=== PATIENT | male | born 1965 | race Caucasian/White ===

== ENCOUNTER 2020-03-14 19:16 | Emergency (ER) | payer BC, OTHER ==
[2020-03-14] MEDS ORDERED: Sodium Chloride 0.9% 10 ML Syringe FLUSH PRN (19:24)
--- NOTE | 2020-03-14 19:24 | EDM.PDOC ---
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 above. Symptomatic relief with additional Flexeril with caution. (3) Wrist pain SNOMED Code(s): 11455644 Code(s): M25.539 - PAIN IN UNSPECIFIED WRIST Status: Acute Priority: High Onset Date: 03/14/20 Annotation/Comment:: Symptomatic relief as per discharge instructions for minor wrist sprain. He does have Rufino wraps at home. He does not wish to have a cock up wrist splint. Qualifiers: Laterality: right Qualified Code(s): M25.531 - Pain in right wrist (4) Parkinsons disease SNOMED Code(s): 63678524 Code(s): G20 - PARKINSON'S DISEASE Status: Chronic Priority: High Annotation/Comment:: Occasional borderline mild slow thought processes by history from his . CT scan of the head results as above. Head precautions given. Note recent change of patient's medications including additional Mirapex. Additional moderate alcohol intake, including binge drinking with patient e ncouraged to decrease his alcohol intake. Continue to observe closely by his regular provider. (5) Osteoarthritis SNOMED Code(s): 447345551 Code(s): M19.90 - UNSPECIFIED OSTEOARTHRITIS, UNSPECIFIED SITE Status: Chronic Priority: Medium Annotation/Comment:: Otherwise stable by history with no other injuries or complaints. Qualifiers: Osteoarthritis location: multiple joints Osteoarthritis type: primary Qualified Code(s): M89.49 - Other hypertrophic osteoarthropathy, multiple sites (6) Hyperglycemia SNOMED Code(s): 16179691 Code(s): R73.9 - HYPERGLYCEMIA, UNSPECIFIED Status: Acute Priority: Medium Onset Date: 03/14/20 Annotation/Comment:: No oral intake since noon with elevated seven-hour fasting blood sugar. Normal glycosylated hemoglobin. (7) Abrasion SNOMED Code(s): 592948557 Code(s): T14.8XXA - OTHER INJURY OF UNSPECIFIED BODY REGION, INITIAL ENCOUNTER Status: Chronic Priority: High Onset Date: 03/14/20 Annotation/Comment:: Minor abrasion of the right wrist as above. See room nurse did confirm last DTaP on 02/28/15 thru [facility]. - Problem List Review Problem List Initiated/Reviewed/Updated: Yes - My Orders Last 24 Hours: My Active Orders 03/14/20 Breakfast Nothing per Oral Now Diet [DIET] 03/14/20 19:24 Cardiac Monitoring [RC] . DIRECTED EKG Documentation Completion [RC] ASDIRECTED Oxygen Therapy, ED [RC] PRN Peripheral IV Care [RC] . DIRECTED Pulse Oximetry [RC] CONTINUOUS Up With Assistance [RC] PFP Vital Signs [RC] PFP Cervical Spine 1V [CR] Stat Chest 1V Frontal [CR] Stat Lumbar Spine 1V [CR] Stat Pelvis 1V or 2V [CR] Stat Sodium Chloride 0.9% [Saline Flush] 10 ml FLUSH ASDIRECTED PRN Obtain Past Medical Record [OM.PC] Urgent Peripheral IV Insertion Adult [OM.PC] Stat Resuscitation Status Stat EKG 12 Lead [EK] Stat 03/14/20 19:26 Lumbar Spine Min 4V [CR] Stat 03/14/20 19:34 Head wo Cont [CT] Stat 03/14/20 22:45 CULTURE URINE [RM] Routine - Assessment/Plan Last 24 Hours: My Active Orders 03/14/20 Breakfast Nothing per Oral Now Diet [DIET] 03/14/20 19:24 Cardiac Monitoring [RC] . DIRECTED EKG Documentation Completion [RC] ASDIRECTED Oxygen Therapy, ED [RC] PRN Peripheral IV Care [RC] . DIRECTED Pulse Oximetry [RC] CONTINUOUS Up With Assistance [RC] PFP Vital Signs [RC] PFP Cervical Spine 1V [CR] Stat Chest 1V Frontal [CR] Stat Lumbar Spine 1V [CR] Stat Pelvis 1V or 2V [CR] Stat Sodium Chloride 0.9% [Saline Flush] 10 ml FLUSH ASDIRECTED PRN Obtain Past Medical Record [OM.PC] Urgent Peripheral IV Insertion Adult [OM.PC] Stat Resuscitation Status Stat EKG 12 Lead [EK] Stat 03/14/20 19:26 Lumbar Spine Min 4V [CR] Stat 03/14/20 19:34 Head wo Cont [CT] Stat 03/14/20 22:45 CULTURE URINE [RM] Routine Assessment:: As above Plan: As above. Extensive precautions were given to the patient and his , who are in agreement with the treatment plan. See Patient Instructions for further treatment and plan.
[2020-03-14 20:01] LABS: CHLORIDE,CL 105 mmol/L (98-107); SODIUM,NA 139 mmol/L (136-145)
[2020-03-14 20:43] LABS: HEMOGLOBIN A1C 5.2 % (4.3-5.7)
[2020-03-14 23:40] LABS: BARBITURATE SCREEN,URINE NEGATIVE (NEGATIVE); BENZODIAZEPINES SCREEN,URINE NEGATIVE (NEGATIVE); EDDP,URINE SCREEN NEGATIVE (NEGATIVE); TCA SCREEN,URINE NEGATIVE (NEGATIVE); THC SCREEN,URINE 50 NG/ML NEGATIVE (NEGATIVE)
== END 2020-03-15 00:15 | disposition home or self-care (01) ==
LOC: LL.ED 19:16
DX: S60.811A Abrasion of right wrist, initial encounter (principal); M89.49 Other hypertrophic osteoarthropathy, multiple sites; M54.5 Low back pain; G20 Parkinson's disease; R73.9 Hyperglycemia, unspecified; Z86.73 Personal history of transient ischemic attack (TIA), and cerebral infarction without residual deficits; V43.53XA Car driver injured in collision with pick-up truck in traffic accident, initial encounter; Y92.411 Interstate highway as the place of occurrence of the external cause
CPT/HCPCS: 36415; 70450; 71045; 72040; 72110; 72170; 73110-RT; 80053; 80305-QW; 80307; 81001; 82150; 82550; 82553; 83036; 83605; 83690; 83735; 84484; 84550; 85025; 85610; 85730; 87086; 93005; 96372; 99285-25; J3360

== ENCOUNTER 2020-09-13 11:12 | Emergency (ER) | payer BC ==
[2020-09-13] MEDS ORDERED: Pantoprazole 40 MG Vial IVPUSH ONE (11:19)
[2020-09-13] MEDS ORDERED: Lactated Ringers 1,000 ML IV ONE (11:19)
[2020-09-13] MEDS ORDERED: Famotidine 20 MG/2 ML SDV IVPUSH ONE (11:19)
--- NOTE | 2020-09-13 11:19 | EDM.PDOC ---
ED HPI GENERAL MEDICAL PROBLEM - General Chief Complaint: Gastrointestinal Problem Stated Complaint: right sided abdominal pain and distention Time Seen by Provider: 09/13/20 11:12 Source of Information: Reports: Patient, Family (), Old Records ([facility] EMR. No paper hospital chart available.) History Limitations: Reports: No Limitations - History of Present Illness INITIAL COMMENTS - FREE TEXT/NARRATIVE: The patient was brought to the emergency room via private automobile by his for evaluation of exacerbation of his chronic constipation. Note that the patient has not had a good bowel movement since 09/07 with the patient seen by his regular provider, Sayra Ramos PA-C, at [facility] in [place], on 09/11 with stool softener, etc. prescribed at that time with no improvement of his symptoms. Patient took 4 doses of MiraLAX on his own yesterday with some small liquid bowel movements with but no significant stools. No recent history of heartburn, nausea, diarrhea, melena, gross hematochezia, or any food intolerance, including fatty foods, etc., although the patient does complain of 3/10 mid abdominal bloating. The patient denies any chest pain/pressure, heart flutter, dizziness, orthostasis, orthopnea, diaphoresis, paresthesias, recent decreased exercise tolerance, or any other anginal-type symptoms. He denies any gross hematuria, colic, or other UTI symptoms. The patient also denies any recent fever, cough, wheezing, dyspnea, etc.. Onset: Gradual Onset Date: 09/07/20 Duration: Getting Worse, Intermittent Location: Reports: Abdomen. Denies: Head, Face, Neck, Chest, Back, Pelvis, Upper Extremity, Left, Upper Extremity, Right, Lower Extremity, Left, Lower Extremity, Right, Radiates to Quality: Reports: Other (As above) Improves with: Reports: None Worsens with: Reports: None Context: Reports: Other (As above). 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: Reports: Other Medication(s) (As above) right abdominal pain Pain Score (Numeric/FACES): 3 - Related Data Allergies Allergy/AdvReac Type Severity Reaction Status Date / Time No Known Allergies Allergy Verified 09/13/20 11:14 Home Meds: Home Meds Carbidopa/Levodopa [Sinemet 25-100 mg Tablet] 2 tab PO QID 09/13/20 [History] Docusate Sodium [Colace] 100 mg PO BID #60 cap 09/13/20 [Rx] Pramipexole [Mirapex] 2 tab PO TID 09/13/20 [History] Sodium Chloride 0.9% [Saline Flush] 10 ml FLUSH ASDIRECTED PRN syringe 09/13/20 [Rx] polyethylene glycoL 3350 [MiraLAX] 17 gm PO DAILY #30 09/13/20 [Rx] Past Medical History HEENT History: Reports: Cataract, Hard of Hearing, Impaired Vision. Denies: Allergic Rhinitis, Glaucoma, Macular Degeneration, Otitis Media, Retinal Detachment Other HEENT History: Patient does wear glasses. Mild bilateral hearing loss/presbycusis with no hearing aide therapy. Beginning cataracts. Cardiovascular History: Reports: None. Denies: Afib, Aneurysm, Arrhythmia, Blood Clots/VTE/DVT, CAD, Cardiomyopathy, Heart Failure, Heart Murmur, High Cholesterol, Hypertension, NV, PVD, Syncope Respiratory History: Reports: None. Denies: Asthma, Bronchitis, Recurrent, COPD, Intubation, Previous, PE, Pneumothorax, Sleep Apnea, TB Gastrointestinal History: Reports: Chronic Constipation, GERD. Denies: Celiac Disease, Cholelithiasis, Chronic Diarrhea, Fecal Incontinence, Gastritis, GI Bleed, Hiatal Hernia, Inflammatory Bowel Disease, Irritable Bowel Syndrome, Jaundice, Pancreatitis, PUD Genitourinary History: Reports: None. Denies: Acute Renal Failure, BPH, Chronic Renal Insuffiency, Renal Calculus, STD, Urinary Incontinence, UTI, Recurrent Musculoskeletal History: Reports: Arthritis, Back Pain, Chronic, Osteoarthritis, Other (See Below). Denies: Fracture, Gout, Neck Pain, Chronic, RA, SLE Other Musculoskeletal History: L4 vertebral body compression fracture. Right rotator cuff tear. Neurological History: Reports: Parkinson's. Denies: Cerebral Aneurysms, Concussion, CVA, Headaches, Chronic, Head Trauma, Migraines, MS, Seizure, TIA Psychiatric History: Reports: None. Denies: Abuse, Victim of, ADD, ADHD, Addiction, Anxiety, Depression, Psych Hospitalization(s), PTSD, Suicide Attempt, Suicidal Ideation Endocrine/Metabolic History: Denies: Diabetes, Type I, Diabetes, Type II, Diabetes Mellitus, Type 3c, Hypothyroidism, IDDM, Obesity/BMI 30+ Hematologic History: Reports: None. Denies: Anemia, Blood Transfusion(s), Iron Deficiency Immunologic History: Reports: None. Denies: AIDS, HIV, SLE Oncologic (Cancer) History: Reports: None. Denies: Basal Cell Carcinoma, Colon, Hodgkin's Lymphoma, Leukemia, Lymphoma, Malignant Melanoma, Non-Hodgkin's Lymphoma, Prostate, Squamous Cell Carcinoma Dermatologic History: Reports: None. Denies: Eczema, Psoriasis - Infectious Disease History Infectious Disease History: Reports: None. Denies: C-Difficile, Chicken Pox, Measles, Meningitis, Mononucleosis, MRSA, Mumps, Novel Coronavirus, Pertussis (Whooping Cough), Rheumatic Fever, Rubella, Scarlet Fever, Shingles, TB, VRE - Past Surgical History Head Surgeries/Procedures: Reports: None HEENT Surgical History: Reports: None. Denies: Cataract Surgery, Eye Surgery, Laser Surgery, LASIK, Myringotomy w Tube(s), Naso-Sinus Surgery, Oral Surgery, Tonsillectomy Cardiovascular Surgical History: Reports: None. Denies: Varicose Respiratory Surgical History: Reports: None. Denies: Thoracentesis GI Surgical History: Reports: Appendectomy, Colonoscopy, Other (See Below). Denies: Cholecystectomy, EGD, Hernia, Abdominal, Hernia, Inguinal, Hernia Repair/Other, Polypectomy Other GI Surgeries/Procedures: Colonoscopy in about 2017. Appendectomy at age 29. Male Surgical History: Reports: Circumcision, Vasectomy, Other (See Below). Denies: Prostate Biopsy, TURP-Transurethral Resection of Prostate Other Male Surgeries/Procedures: Vasectomy at about age 49. Circumcision as an . Endocrine Surgical History: Reports: None. Denies: Thyroid Biopsy Neurological Surgical History: Reports: None. Denies: C-Spine, Discectomy, Laminectomy, Lumbar Spine, Sacral Spine, Spinal Fusion, Thoracic Spine, Vertebroplasty Musculoskeletal Surgical History: Reports: None. Denies: Arthroscopic Procedure, Carpal Tunnel, Ganglion Cyst, ORIF, Shoulder Surgery Oncologic Surgical History: Reports: None Dermatological Surgical History: Reports: None - Past Imaging History Past Imaging History: Reports: CAT Scan (CT of the head on 03/14/2020.), MRI (MRI of the lumbar spine on 03/27/2020. MRI of the right shoulder and lumbar spine on 04/30/18.) Social & Family History - Tobacco Use Tobacco Use Status *Q: Never Tobacco User Tobacco Use Within Last Twelve Months: No Used Tobacco, but Quit: No Smoking Cessation Information Provided To Patient: No Second Hand Smoke Exposure: No Second Hand Smoke Education Provided: No - Caffeine Use Caffeine Use: Reports: Soda (2 soda per day). Denies: Coffee, Energy Drinks - Alcohol Use Alcohol Use History: Yes Days Per Week of Alcohol Use: 2 Number of Drinks Per Day: 10 Total Drinks Per Week: 20 Total Drinks Per Week Comment: No previous DWIs, problems with alcohol abuse, etc. Alcohol Use in Last Twelve Months: Yes Alcohol Use Frequency: Binges - Recreational Drug Use Recreational Drug Use: No Drug Use in Last 12 Months: No Recreational Drug Type: Denies: Amphetamines (Speed), Cocaine, Heroin, Inhalants (Glues, Solvents, Aerosols), LSD (Acid), Marijuana/Hashish, Methamphetamine, Morphine, Oxycodone - Living Situation & Occupation Living situation: Reports: (1986, 3 children), with Family () Occupation: Employed ([employer]) ED ROS GENERAL - Review of Systems Review Of Systems: Comprehensive ROS is negative, except as noted in HPI. ED EXAM, GI/ABD - Physical Exam Exam: See Below Exam Limited By: No Limitations General Appearance: Alert, WD/WN, No Apparent Distress Eyes: Bilateral: Normal Appearance (No nystagmus. The patient is wearing glasses), EOMI Ears: Normal External Exam, Normal Canal, Normal TMs, Hearing Loss (Mild bilateral presbycusis with no current therapy). No: Hearing Grossly Normal Nose: Normal Inspection, Normal Mucosa, No Blood Throat/Mouth: Normal Inspection, Normal Lips, Normal Teeth, Normal Gums, Normal Oropharynx, Normal Voice, No Airway Compromise. No: Dysphagia, Perioral Cyanosis Head: Atraumatic, Normocephalic. No: Facial Swelling, Facial Tenderness, Sinus Tenderness Neck: Normal Inspection, Supple, Non-Tender, Full Range of Motion. No: Carotid Bruit, Lymphadenopathy (L), Lymphadenopathy (R), Thyromegaly Respiratory/Chest: No Respiratory Distress, Lungs Clear, Normal Breath Sounds, No Accessory Muscle Use, Chest Non-Tender. No: Pleural Rub, Retractions Cardiovascular: Normal Peripheral Pulses, Regular Rate, Rhythm, No Edema, No Gallop, No JVD, No Murmur, No Rub. No: Gallop/S3, Gallop/S4, Friction Rub GI/Abdominal Exam: Normal Bowel Sounds, Soft, Non-Tender, No Organomegaly, No Distention, No Abnormal Bruit, No Mass, Pelvis Stable. No: Guarding (Male) Exam: Deferred Rectal (Males) Exam: Normal Rectal Tone, BPH (Mild), Heme - Stool, Hemorrhoids (Grade 2 internal/external). No: Black Stool, Bloody Stool, Prostate Nodule, Tenderness Extremities: Normal Inspection, Normal Range of Motion, Non-Tender, No Pedal Edema, Normal Capillary Refill. No: Ange's Sign Neurological: Alert, Oriented, CN II-XII Intact, Normal Cognition, Normal Gait, Normal Reflexes (Negative Babinski's), No Motor/Sensory Deficits, Other (No significant rigidity, cogwheeling, or tremor.) Psychiatric: Normal Affect, Normal Mood Skin Exam: Warm, Dry, Intact, Normal Color, No Rash. No: Diaphoretic, Wound/Incision Lymphatic: No Adenopathy Course - Vital Signs Last Recorded V/S: Last Vital Signs Temp 37.1 C 09/13/20 11:16 Pulse 61 09/13/20 12:55 Resp 16 09/13/20 12:55 BP 125/75 09/13/20 12:55 Pulse Ox 100 09/13/20 12:55 Vital Signs - 24 hr 09/13/20 09/13/20 09/13/20 11:16 11:17 12:55 Temperature [ 37.1 C Oral] Pulse, 75 69 61 Peripheral [ Right Pulse Oximetry] Respiratory 18 16 Rate Blood Pressure 162/89 H 129/76 125/75 [Right Upper Arm] O2 Sat by Pulse 98 100 Oximetry - Orders/Labs/Meds Orders: Active Orders 24 hr Category Date Time Status Peripheral IV Care [RC] . DIRECTED Care 09/13/20 11:20 Active Nothing Per Oral Diet [DIET] Diet 09/13/20 Breakfast Active Abdomen Series w Chest 1V [CR] Stat Exams 09/13/20 11:19 Taken Sodium Chloride 0.9% [Saline Flush] Med 09/13/20 11:19 Active 10 ml FLUSH ASDIRECTED PRN Obtain Past Medical Record [OM.PC] Urgent Oth 09/13/20 11:19 Active Peripheral IV Insertion Adult [OM.PC] Stat Oth 09/13/20 11:19 Ordered Resuscitation Status Stat Resus Stat 09/13/20 11:19 Ordered Medication Orders Sodium Chloride (Saline Flush) 10 ml FLUSH ASDIRECTED PRN PRN Reason: Keep Vein Open Last Admin: 09/13/20 11:37 Dose: 10 ml Documented by: Admin: 09/13/20 11:36 Dose: 10 ml Documented by: EDWIN Labs: Laboratory Tests 09/13/20 09/13/20 09/13/20 Range/Units 11:25 11:25 11:25 WBC 7.2 (4.0-10.2) K/uL RBC 4.90 (4.33-5.41) M/uL Hgb 15.0 D (13.1-16.8) g/dL Hct 44.9 (39.0-49.0) % MCV 91.6 (84.0-98.0) fL MCH 30.6 (28.2-33.3) pg MCHC 33.4 (31.7-36.0) g/dL RDW 13.0 (11.2-14.1) % Plt Count 208 (150-350) K/uL Neut % (Auto) 72.7 (45.0-80.0) % Lymph % (Auto) 18.4 (10.0-50.0) % Forest % (Auto) 6.5 (2.0-14.0) % Eos % (Auto) 2.1 (0.0-5.0) % Baso % (Auto) 0.3 (0.0-2.0) % Neut # (Auto) 5.22 (1.40-7.00) K/uL Lymph # (Auto) 1.32 (0.50-3.50) K/uL Forest # (Auto) 0.47 (0.00-1.00) K/uL Eos # (Auto) 0.15 (0.00-0.50) K/uL Baso # (Auto) 0.02 (0.00-0.20) K/uL PT 10.0 (9.5-12.0) SEC INR 1.0 APTT 26.1 (24.5-32.8) SEC Sodium (136-145) mmol/L Potassium (3.5-5.1) mmol/L Chloride (98-107) mmol/L Carbon Dioxide (21.0-32.0) mmol/L BUN (7-18) mg/dL Creatinine (0.51-1.17) mg/dL Est Cr Clr Drug Dosing mL/min Estimated GFR (MDRD) mL/min Glucose (74-106) mg/dL Lactic Acid (0.4-2.0) mmol/L Uric Acid (2.6-7.2) mg/dL Calcium (8.5-10.1) mg/dL Magnesium (1.8-2.4) mg/dL Total Bilirubin (0.2-1.0) mg/dL AST (15-37) U/L ALT (12-78) U/L Alkaline Phosphatase (46-116) IU/L Total Protein (6.4-8.2) g/dL Albumin (3.4-5.0) g/dL Amylase 55 (25-115) U/L Lipase (73-393) U/L 09/13/20 09/13/20 Range/Units 11:25 11:25 WBC (4.0-10.2) K/uL RBC (4.33-5.41) M/uL Hgb (13.1-16.8) g/dL Hct (39.0-49.0) % MCV (84.0-98.0) fL MCH (28.2-33.3) pg MCHC (31.7-36.0) g/dL RDW (11.2-14.1) % Plt Count (150-350) K/uL Neut % (Auto) (45.0-80.0) % Lymph % (Auto) (10.0-50.0) % Forest % (Auto) (2.0-14.0) % Eos % (Auto) (0.0-5.0) % Baso % (Auto) (0.0-2.0) % Neut # (Auto) (1.40-7.00) K/uL Lymph # (Auto) (0.50-3.50) K/uL Forest # (Auto) (0.00-1.00) K/uL Eos # (Auto) (0.00-0.50) K/uL Baso # (Auto) (0.00-0.20) K/uL PT (9.5-12.0) SEC INR APTT (24.5-32.8) SEC Sodium 136 (136-145) mmol/L Potassium 4.1 (3.5-5.1) mmol/L Chloride 103 (98-107) mmol/L Carbon Dioxide 26.1 (21.0-32.0) mmol/L BUN 14 (7-18) mg/dL Creatinine 0.83 (0.51-1.17) mg/dL Est Cr Clr Drug Dosing 99.38 mL/min Estimated GFR (MDRD) > 60 mL/min Glucose 101 (74-106) mg/dL Lactic Acid 1.1 (0.4-2.0) mmol/L Uric Acid 6.0 (2.6-7.2) mg/dL Calcium 8.9 (8.5-10.1) mg/dL Magnesium 2.3 (1.8-2.4) mg/dL Total Bilirubin 0.6 (0.2-1.0) mg/dL AST 19 (15-37) U/L ALT 16 (12-78) U/L Alkaline Phosphatase 81 (46-116) IU/L Total Protein 7.3 (6.4-8.2) g/dL Albumin 3.8 (3.4-5.0) g/dL Amylase (25-115) U/L Lipase 166 (73-393) U/L [facility] 09/13/20 11:55 Stool Occult Blood (NOAM) - Final Stool / Feces NEGATIVE OCCULT BLOOD REFERENCE RANGE: NEGATIVE Meds: Medications Generic Name Dose Route Start Last Admin Trade Name Freq PRN Reason Stop Dose Admin Sodium Chloride 10 ml 09/13/20 11:19 09/13/20 11:37 Saline Flush FLUSH 10 ml ASDIRECTED PRN Administration Keep Vein Open Discontinued Medications Generic Name Dose Route Start Last Admin Trade Name Freq PRN Reason Stop Dose Admin Famotidine 40 mg 09/13/20 11:19 09/13/20 11:36 Pepcid IVPUSH 09/13/20 11:20 40 mg ONETIME ONE Administration Lactated Ringer's 1,000 mls @ 999 mls/hr 09/13/20 11:19 09/13/20 11:37 Ringers, Lactated IV 09/13/20 12:19 999 mls/hr .BOLUS ONE Administration Magnesium Citrate 0 ml 09/13/20 12:09 09/13/20 13:01 Citrate Of Magnesia PO 09/13/20 12:10 296 ml ONETIME ONE Administration Pantoprazole Sodium 40 mg 09/13/20 11:19 09/13/20 11:37 Protonix Iv IVPUSH 09/13/20 11:20 40 mg ONETIME ONE Administration Polyethylene Glycol 17 gm 09/13/20 12:09 09/13/20 13:01 Miralax PO 09/13/20 12:10 17 gm ONETIME ONE Administration - Radiology Interpretation Free Text/Narrative:: Acute abdominal x-rays shows evidence of moderate diffuse stool with additional mildly increased diffuse nonspecific bowel gaseous pattern with only minimal occasional fluid levels consistent with possible gastroenteritis, however no free air, ileus, or obstruction. Mild to moderate osteoarthritic changes also noted including bilateral coxarthrosis. Possible mild pulmonary obstructive disease with no pneumothorax, cardiomegaly, CHF, or pulmonary infiltrates. Departure - Departure Time of Disposition: 13:13 Disposition: Home, Self-Care 01 Clinical Impression: Parkinsons disease, Elevated blood pressure reading Osteoarthritis Qualifiers: Osteoarthritis location: multiple joints Osteoarthritis type: primary Qualified Code(s): M89.49 - Other hypertrophic osteoarthropathy, multiple sites Constipation Qualifiers: Constipation type: chronic idiopathic constipation Qualified Code(s): K59.04 - Chronic idiopathic constipation - Discharge Information *PRESCRIPTION DRUG MONITORING PROGRAM REVIEWED*: Not Applicable *COPY OF PRESCRIPTION DRUG MONITORING REPORT IN PATIENT RON: Not Applicable Prescriptions: Docusate Sodium [Colace] 100 mg PO BID #60 cap polyethylene glycoL 3350 [MiraLAX] 17 gm PO DAILY #30 Instructions: High-Fiber Diet, Constipation, Adult, [id number], Pantoprazole injection, Famotidine injection, Magnesium Citrate oral solution, Polyethylene Glycol powder Referrals: Sayra Roa PA-C [Primary Care Provider] - Forms: ED Department Discharge Additional Instructions: 1. Follow up with your regular provider in 10-14 days as needed, if symptoms persist. Bring these discharge instructions with you to that visit.. 2. [place] diet including encouragement of oral fluids such as sports drinks, etc. for 24-48 hours as directed. Advance to regular high-fiber diet as tolerated thereafter. 3. Goal with [id number] MiraLAX is having 1 excellent bowel movement at least every 2 days with this medication to be held, if you have diarrhea. No other experimentation with other OTC laxatives as discussed. 4. Immediately after this visit verify that your cellular telephone's voicemail has been activated and is empty. Also verify that your home telephone's answering machine is operating properly and has space to receive messages. Note that it is sometimes necessary for us to be able to contact you at a later date to discuss your medical care. 5. Please remember that we are ALWAYS here for you and want to answer any questions you may have. Feel free to call the hospital any time and we call you back SWATI. 6. Decrease alcohol intake as discussed. 7. Continue to observe your blood pressures closely through your regular provider in the [facility] nurse. Sepsis Event Note (ED) - Evaluation Sepsis Screening Result: No Definite Risk - Focused Exam Vital Signs: Vital Signs Temp Pulse Resp BP Pulse Ox 09/13/20 12:55 61 16 125/75 100 09/13/20 11:17 69 129/76 09/13/20 11:16 37.1 C 75 18 162/89 H 98 - Problem List & Annotations (1) Constipation SNOMED Code(s): 42274053 Code(s): K59.00 - CONSTIPATION, UNSPECIFIED Status: Acute Priority: High Annotation/Comment:: Chronic problem as above likely exacerbated by his Parkinson's disease. Patient aggressively treated in the emergency room with magnesium citrate and MiraLAX as above. Symptomatic relief as per discharge instructions with dietary information also provided. Patient did apparently have a normal colonoscopy in 2017. Further work-up depending on his clinical course. Qualifiers: Constipation type: chronic idiopathic constipation Qualified Code(s): K59.04 - Chronic idiopathic constipation (2) Elevated blood pressure reading SNOMED Code(s): 32704688 Code(s): R03.0 - ELEVATED BLOOD-PRESSURE READING, W/O DIAGNOSIS OF HTN Status: Acute Priority: Medium Onset Date: 09/13/20 Annotation/Comment:: No previous history of hypertension. Continue to observe closely by his regular provider, etc. as per discharge instructions. (3) Osteoarthritis SNOMED Code(s): 572974063 Code(s): M19.90 - UNSPECIFIED OSTEOARTHRITIS, UNSPECIFIED SITE Status: Chronic Priority: Medium Annotation/Comment:: Stable by history. Qualifiers: Osteoarthritis location: multiple joints Osteoarthritis type: primary Qualified Code(s): M89.49 - Other hypertrophic osteoarthropathy, multiple sites (4) Parkinsons disease SNOMED Code(s): 13950428 Code(s): G20 - PARKINSON'S DISEASE Status: Chronic Priority: High A nnotation/Comment:: Stable by history and overall under good control with current medical therapy based on today's exam. - Problem List Review Problem List Initiated/Reviewed/Updated: Yes - My Orders Last 24 Hours: My Active Orders 09/13/20 Breakfast Nothing Per Oral Diet [DIET] 09/13/20 11:19 Abdomen Series w Chest 1V [CR] Stat Sodium Chloride 0.9% [Saline Flush] 10 ml FLUSH ASDIRECTED PRN Obtain Past Medical Record [OM.PC] Urgent Peripheral IV Insertion Adult [OM.PC] Stat Resuscitation Status Stat 09/13/20 11:20 Peripheral IV Care [RC] . DIRECTED - Assessment/Plan Last 24 Hours: My Active Orders 09/13/20 Breakfast Nothing Per Oral Diet [DIET] 09/13/20 11:19 Abdomen Series w Chest 1V [CR] Stat Sodium Chloride 0.9% [Saline Flush] 10 ml FLUSH ASDIRECTED PRN Obtain Past Medical Record [OM.PC] Urgent Peripheral IV Insertion Adult [OM.PC] Stat Resuscitation Status Stat 09/13/20 11:20 Peripheral IV Care [RC] . DIRECTED Assessment:: As above Plan: As above. Extensive precautions were given to the patient and his , who are in agreement with the treatment plan. See Patient Instructions for further treatment and plan.
[2020-09-13] MEDS: Sodium Chloride 0.9% 10 ML Syringe FLUSH PRN ×2 (11:36→11:37)
[2020-09-13 11:46] LABS: CHLORIDE,CL 103 mmol/L (98-107); SODIUM,NA 136 mmol/L (136-145)
[2020-09-13 11:51] LABS: PTT,PARTIAL THROMBOPLSTIN TIME 26.1 SEC (24.5-32.8)
[2020-09-13] MEDS ORDERED: Polyethylene Glycol 3350 Powder 17 GM Packet PO ONE (12:09)
[2020-09-13] MEDS ORDERED: Magnesium Citrate Solution 296 ML Bottle PO ONE (12:09)
== END 2020-09-13 13:12 | disposition home or self-care (01) ==
LOC: LL.ED 11:12
DX: K59.04 Chronic idiopathic constipation (principal); G20 Parkinson's disease; R03.0 Elevated blood-pressure reading, without diagnosis of hypertension; M89.49 Other hypertrophic osteoarthropathy, multiple sites; Z79.899 Other long term (current) drug therapy
CPT/HCPCS: 36415; 74022; 80053; 82150; 82272; 83605; 83690; 83735; 84550; 85025; 85610; 85730; 96361; 96374; 96375; 99283-25; 99284; A9270-GY; C9113; J3490; J7120

== ENCOUNTER 2023-02-01 21:10 | Emergency (ER) | payer BC ==
[2023-02-01] MEDS: OLANZapine 10 MG Vial IM ONE (21:48)
[2023-02-01] MEDS ORDERED: Sodium Chloride 0.9% 10 ML Syringe FLUSH PRN (22:38)
== END 2023-02-02 | disposition home or self-care (01) ==
LOC: LL.ED 21:10
DX: G20 Parkinson's disease (principal); F41.0 Panic disorder [episodic paroxysmal anxiety]
CPT/HCPCS: 93005; 96372; 99284; J2405

== ENCOUNTER 2024-04-01 10:03 | Inpatient (IN) | payer BC, OTHER ==
[2024-04-01 10:21] LABS: BASOPHILS ABSOLUTE AUTO 0.02 K/uL (0.00-0.20); BASOPHILS PERCENT AUTO 0.1 % (0.0-2.0); HEMATOCRIT 46.4 % (39.0-49.0); HEMOGLOBIN 15.2 g/dL (13.1-16.8); LYMPHOCYTES ABSOLUTE AUTO 0.55 K/uL (0.50-3.50); MEAN CORPUSCULAR HEMOGLOBIN 30.5 pg (28.2-33.3); MEAN CORPUSCULAR HGB CONC 32.8 g/dL (31.7-36.0); MONOCYTES ABSOLUTE AUTO 1.28 K/uL (0.00-1.00); MONOCYTES PERCENT AUTO 7.1 % (2.0-14.0); NEUTROPHILS ABSOLUTE AUTO 16.19 K/uL (1.40-7.00); NEUTROPHILS PERCENT AUTO 89.8 % (45.0-80.0); PLATELET COUNT,PLT 232 K/uL (150-350); RED BLOOD CELL COUNT 4.99 M/uL (4.33-5.41); RED CELL DISTRIBUTION WIDTH 13.9 % (11.2-14.1)
[2024-04-01 10:44] LABS: APPEARANCE,URINE CLEAR; BILIRUBIN,URINE SMALL (NEGATIVE); COLOR,URINE BROWN; GLUCOSE,URINE NEGATIVE (NEGATIVE); KETONES,URINE TRACE mg/dL (NEGATIVE); LEUKOCYTE ESTERASE,URINE NEGATIVE (NEGATIVE); NITRITE,URINE NEGATIVE (NEGATIVE); OCCULT BLOOD,URINE LARGE (NEGATIVE); PH,URINE 5.5 (5.0-9.0); PROTEIN,URINE 100 mg/dL (NEGATIVE); UROBILINOGEN,URINE 0.2 E.U./dL (0.2-1.0)
[2024-04-01 10:46] LABS: LACTIC ACID 1.8 mmol/L (0.4-2.0)
[2024-04-01 10:49] LABS: INR 1.1
[2024-04-01 10:56] LABS: AMORPHOUS SEDIMENT,URINE MANY /HPF (0/HPF); BACTERIA,URINE NOT SEEN /HPF (NONE TO FEW); EPITHELIAL CELLS,URINE NOT SEEN /LPF; GRANULAR CASTS,URINE MANY; HYALINE CASTS,URINE MODERATE; MUCUS,URINE FEW /LPF (NEGATIVE); RBC,URINE 0-5 /HPF; WBC,URINE 0-5 /HPF
[2024-04-01 11:00] LABS: OTHER CRYSTALS,URINE FEW /HPF
[2024-04-01 11:09] LABS: BILIRUBIN TOTAL 0.9 mg/dL (0.2-1.0); CALCIUM 8.9 mg/dL (8.5-10.1); CARBON DIOXIDE,CO2 22.7 mmol/L (21.0-32.0); CREATININE 1.49 mg/dL (0.51-1.17); EST CRCL DRUG DOSING (CG) 53.38 mL/min; MAGNESIUM 2.2 mg/dL (1.8-2.4); POTASSIUM,K 3.7 mmol/L (3.5-5.1); PROTEIN TOTAL,TP 7.8 g/dL (6.4-8.2)
[2024-04-01] MEDS: Sodium Chloride 0.9% 1,000 ML IV ONE ×4 (11:23→16:10)
[2024-04-01 12:34] LABS: PCO2 ARTERIAL,POC 36 mmHg (35-48); PH ARTERIAL,POC 7.4 pH (7.35-7.45)
[2024-04-01 12:35] LABS: BASE EXCESS ARTERIAL,POC -3 mmol/L (-2-3); HCO3 ARTERIAL,POC 21.7 mmol/L (22-26); O2 SATURATION ARTERIAL,POC 94.7 % (95-98); PO2 ARTERIAL,POC 74 mmHg (83-108); TCO2 ARTERIAL,POC 21.5 mmol/L (23-27)
[2024-04-01 13:11] LABS: POTASSIUM,POC 3.6 mmol/L (3.5-4.5)
[2024-04-01 13:12] LABS: CALCIUM IONIZED,POC 1.15 mmol/L (1.12-1.32); CREATININE,POC 1.12 mg/dL (0.51-1.19)
[2024-04-01] MEDS ORDERED: Carbidopa/Levodopa 50-200 MG Tab.ER PO PRN (14:02)
[2024-04-01] MEDS ORDERED: Polyethylene Glycol 3350 Powder 17 GM Packet PO PRN (14:02)
[2024-04-01] MEDS ORDERED: Docusate Sodium 100 MG Cap PO PRN (14:02)
[2024-04-01] MEDS ORDERED: LEVODOPA 42 MG IH PRN (14:02)
[2024-04-01] MEDS ORDERED: diphenhydrAMINE 25 MG Cap PO PRN (14:02)
[2024-04-01] MEDS ORDERED: LORazepam 0.5 MG Tab PO PRN (14:02)
[2024-04-01] MEDS ORDERED: Baclofen 10 MG Tab PO PRN ×2 (14:02→15:02)
[2024-04-01] MEDS: LORazepam 2 MG/ML SDV IVPUSH ONE (14:39)
[2024-04-01] MEDS: Carbidopa/Levodopa 25-100 MG Tab PO SCH (14:48)
[2024-04-01] MEDS ORDERED: LEVODOPA 42 MG INH PRN (15:06)
[2024-04-01 16:08] LABS: CALCIUM 7.4 mg/dL (8.5-10.1); CARBON DIOXIDE,CO2 20.5 mmol/L (21.0-32.0); CREATININE 1.29 mg/dL (0.51-1.17); EST CRCL DRUG DOSING (CG) 61.66 mL/min; PHOSPHORUS 3.4 mg/dL (2.6-4.7); POTASSIUM,K 3.4 mmol/L (3.5-5.1)
[2024-04-01 16:10] LABS: ANION GAP 14.9 meq/L (7-15)
[2024-04-01] MEDS: Gabapentin 100 MG Cap PO SCH (16:14)
[2024-04-01] MEDS: Pramipexole 0.5 MG Tab PO SCH (16:14)
[2024-04-01] MEDS ORDERED: Sodium Chloride 0.9% 1,000 ML IV SCH (16:15)
[2024-04-01 16:30] LABS: CREATINE KINASE,CK 39377 U/L (26-308)
[2024-04-01] MEDS ORDERED: PRAMIPEXOLE DI HCL 1.5 MG PO SCH (17:00)
[2024-04-01] MEDS: Potassium Chloride Riders 10 MEQ in Premix Bag 1 BAG IV ONE (18:27)
[2024-04-01] MEDS: Enoxaparin 40 MG/0.4 ML Syringe SUBCUT SCH (18:28)
[2024-04-01 18:46] LABS: CALCIUM 7.6 mg/dL (8.5-10.1); CARBON DIOXIDE,CO2 22.2 mmol/L (21.0-32.0); CREATININE 1.32 mg/dL (0.51-1.17); EST CRCL DRUG DOSING (CG) 60.26 mL/min; PHOSPHORUS 3.7 mg/dL (2.6-4.7); POTASSIUM,K 3.5 mmol/L (3.5-5.1)
[2024-04-01] MEDS: Lactated Ringers 1,000 ML IV SCH ×2 (18:46→22:21)
[2024-04-01 18:48] LABS: ANION GAP 13.3 meq/L (7-15)
[2024-04-01] MEDS: Gabapentin 300 MG Cap PO SCH (20:06)
[2024-04-01 20:49] LABS: ANION GAP 12.5 meq/L (7-15); CALCIUM 7.6 mg/dL (8.5-10.1); CARBON DIOXIDE,CO2 22.3 mmol/L (21.0-32.0); CREATININE 1.24 mg/dL (0.51-1.17); EST CRCL DRUG DOSING (CG) 64.14 mL/min; POTASSIUM,K 3.8 mmol/L (3.5-5.1)
[2024-04-01 20:54] LABS: PCO2 ARTERIAL,POC 37 mmHg (35-48); PH ARTERIAL,POC 7.4 pH (7.35-7.45); PO2 ARTERIAL,POC 51 mmHg (83-108)
[2024-04-01 20:55] LABS: BASE EXCESS ARTERIAL,POC -4 mmol/L (-2-3); HCO3 ARTERIAL,POC 21 mmol/L (22-26); O2 SATURATION ARTERIAL,POC 85.1 % (95-98); TCO2 ARTERIAL,POC 20.8 mmol/L (23-27)
[2024-04-01] MEDS: Carbidopa/Levodopa 50-200 MG Tab.ER PO SCH (21:00)
[2024-04-01] MEDS: Baclofen 10 MG Tab PO SCH (21:00)
[2024-04-02 01:15] LABS: BASOPHILS ABSOLUTE AUTO 0.02 K/uL (0.00-0.20); BASOPHILS PERCENT AUTO 0.2 % (0.0-2.0); EOSINOPHILS ABSOLUTE AUTO 0.01 K/uL (0.00-0.50); EOSINOPHILS PERCENT AUTO 0.1 % (0.0-5.0); HEMATOCRIT 36.6 % (39.0-49.0); HEMOGLOBIN 11.8 g/dL (13.1-16.8); LYMPHOCYTES ABSOLUTE AUTO 1.62 K/uL (0.50-3.50); MEAN CORPUSCULAR HEMOGLOBIN 30.5 pg (28.2-33.3); MEAN CORPUSCULAR HGB CONC 32.2 g/dL (31.7-36.0); MEAN CORPUSCULAR VOLUME 94.6 fL (84.0-98.0); MONOCYTES ABSOLUTE AUTO 1.08 K/uL (0.00-1.00); MONOCYTES PERCENT AUTO 8.6 % (2.0-14.0); NEUTROPHILS ABSOLUTE AUTO 9.77 K/uL (1.40-7.00); NEUTROPHILS PERCENT AUTO 78.1 % (45.0-80.0); PLATELET COUNT,PLT 165 K/uL (150-350); RED BLOOD CELL COUNT 3.87 M/uL (4.33-5.41); RED CELL DISTRIBUTION WIDTH 13.6 % (11.2-14.1); WHITE BLOOD CELL COUNT,WBC 12.5 K/uL (4.0-10.2)
[2024-04-02 01:37] LABS: INR 1.1 (0.9-1.1); PROTHROMBIN TIME 10.8 SEC (9.0-11.1)
[2024-04-02 01:42] LABS: LACTIC ACID 0.9 mmol/L (0.4-2.0)
[2024-04-02 01:51] LABS: CALCIUM 7.8 mg/dL (8.5-10.1); CARBON DIOXIDE,CO2 20.2 mmol/L (21.0-32.0); CREATININE 1.05 mg/dL (0.51-1.17); EST CRCL DRUG DOSING (CG) 75.75 mL/min; POTASSIUM,K 3.8 mmol/L (3.5-5.1)
[2024-04-02 02:05] LABS: ANION GAP 14.6 meq/L (7-15)
[2024-04-02] MEDS: Lactated Ringers 1,000 ML IV SCH ×2 (02:53→10:52)
[2024-04-02] MEDS: Carbidopa/Levodopa 25-100 MG Tab PO SCH (07:06)
[2024-04-02 07:46] LABS: CALCIUM 7.8 mg/dL (8.5-10.1); CARBON DIOXIDE,CO2 22.9 mmol/L (21.0-32.0); CREATININE 1.07 mg/dL (0.51-1.17); EST CRCL DRUG DOSING (CG) 74.33 mL/min; POTASSIUM,K 3.9 mmol/L (3.5-5.1)
[2024-04-02] MEDS: Escitalopram 10 MG Tab PO SCH (07:49)
[2024-04-02] MEDS: Multivitamin Tab PO SCH (07:49)
[2024-04-02] MEDS ORDERED: Non-Formulary Medication 1 Each (Multivitamin With Minerals [Multiple Vitamin] 1 EACH Tabl PO SCH (08:00)
[2024-04-02 14:05] LABS: HEMATOCRIT 37.4 % (39.0-49.0); HEMOGLOBIN 12.1 g/dL (13.1-16.8); MEAN CORPUSCULAR HEMOGLOBIN 30.6 pg (28.2-33.3); MEAN CORPUSCULAR HGB CONC 32.4 g/dL (31.7-36.0); MEAN CORPUSCULAR VOLUME 94.7 fL (84.0-98.0); PLATELET COUNT,PLT 162 K/uL (150-350); RED BLOOD CELL COUNT 3.95 M/uL (4.33-5.41); RED CELL DISTRIBUTION WIDTH 13.5 % (11.2-14.1)
[2024-04-02 14:33] LABS: ALBUMIN 2.6 g/dL (3.4-5.0); BILIRUBIN TOTAL 0.7 mg/dL (0.2-1.0); CALCIUM 8.1 mg/dL (8.5-10.1); CARBON DIOXIDE,CO2 23.7 mmol/L (21.0-32.0); CREATININE 1.27 mg/dL (0.51-1.17); EST CRCL DRUG DOSING (CG) 62.63 mL/min; PROTEIN TOTAL,TP 5.6 g/dL (6.4-8.2)
[2024-04-02 14:42] LABS: ANION GAP 13.3 meq/L (7-15)
[2024-04-02] MEDS: Acetaminophen 325 MG Tab PO PRN (16:18)
[2024-04-02 20:26] LABS: ANION GAP 10.7 meq/L (7-15); CALCIUM 7.9 mg/dL (8.5-10.1); CARBON DIOXIDE,CO2 24.9 mmol/L (21.0-32.0); CREATININE 1.12 mg/dL (0.51-1.17); EST CRCL DRUG DOSING (CG) 71.02 mL/min; POTASSIUM,K 3.6 mmol/L (3.5-5.1)
[2024-04-03 08:37] LABS: BASOPHILS ABSOLUTE AUTO 0.02 K/uL (0.00-0.20); BASOPHILS PERCENT AUTO 0.3 % (0.0-2.0); EOSINOPHILS ABSOLUTE AUTO 0.04 K/uL (0.00-0.50); EOSINOPHILS PERCENT AUTO 0.5 % (0.0-5.0); HEMATOCRIT 37.1 % (39.0-49.0); HEMOGLOBIN 12.1 g/dL (13.1-16.8); LYMPHOCYTES ABSOLUTE AUTO 0.96 K/uL (0.50-3.50); LYMPHOCYTES PERCENT AUTO 12.2 % (10.0-50.0); MEAN CORPUSCULAR HEMOGLOBIN 30.8 pg (28.2-33.3); MEAN CORPUSCULAR HGB CONC 32.6 g/dL (31.7-36.0); MEAN CORPUSCULAR VOLUME 94.4 fL (84.0-98.0); MONOCYTES ABSOLUTE AUTO 0.56 K/uL (0.00-1.00); MONOCYTES PERCENT AUTO 7.1 % (2.0-14.0); NEUTROPHILS ABSOLUTE AUTO 6.26 K/uL (1.40-7.00); NEUTROPHILS PERCENT AUTO 79.9 % (45.0-80.0); PLATELET COUNT,PLT 152 K/uL (150-350); RED BLOOD CELL COUNT 3.93 M/uL (4.33-5.41); RED CELL DISTRIBUTION WIDTH 13.2 % (11.2-14.1); WHITE BLOOD CELL COUNT,WBC 7.8 K/uL (4.0-10.2)
[2024-04-03 10:00] LABS: ANION GAP 10.7 meq/L (7-15); CALCIUM 8.3 mg/dL (8.5-10.1); CARBON DIOXIDE,CO2 26.8 mmol/L (21.0-32.0); CREATININE 1.07 mg/dL (0.51-1.17); EST CRCL DRUG DOSING (CG) 74.33 mL/min; POTASSIUM,K 3.5 mmol/L (3.5-5.1)
[2024-04-03] MEDS: Furosemide 20 MG/2 ML VIAL ONE (12:25)
[2024-04-03] MEDS: Furosemide 20 MG/2 ML VIAL IVPUSH ONE ×2 (12:25→21:48)
[2024-04-03 18:15] LABS: CREATININE 1.04 mg/dL (0.51-1.17); EST CRCL DRUG DOSING (CG) 76.48 mL/min
[2024-04-03] MEDS ORDERED: Ondansetron 4 MG/2 ML SDV IVPUSH PRN (22:00)
[2024-04-03] MEDS: Potassium Bicarbonate/Cit Ac 20 MEQ Effervescent Tab PO ONE (23:03)
[2024-04-04 08:53] LABS: ANION GAP 7.8 meq/L (7-15); CARBON DIOXIDE,CO2 30.2 mmol/L (21.0-32.0); EST CRCL DRUG DOSING (CG) 79.54 mL/min; POTASSIUM,K 3.5 mmol/L (3.5-5.1)
[2024-04-04] MEDS: Furosemide 20 MG/2 ML VIAL IVPUSH ONE ×2 (10:30→18:36)
[2024-04-04] MEDS: Potassium Bicarbonate/Cit Ac 20 MEQ Effervescent Tab PO ONE ×2 (10:31→18:35)
[2024-04-04 16:48] LABS: CREATININE 1.2 mg/dL (0.51-1.17); EST CRCL DRUG DOSING (CG) 66.28 mL/min; POTASSIUM,K 3.6 mmol/L (3.5-5.1)
[2024-04-04] MEDS: Sodium Chloride 0.9% 10 ML Syringe FLUSH PRN (18:37)
[2024-04-04] MEDS: Furosemide 40 MG/4 ML VIAL IVPUSH ONE ×2 (18:55→20:53)
[2024-04-05 07:38] LABS: BASOPHILS ABSOLUTE AUTO 0.02 K/uL (0.00-0.20); BASOPHILS PERCENT AUTO 0.3 % (0.0-2.0); EOSINOPHILS ABSOLUTE AUTO 0.17 K/uL (0.00-0.50); EOSINOPHILS PERCENT AUTO 2.3 % (0.0-5.0); HEMATOCRIT 41.4 % (39.0-49.0); HEMOGLOBIN 13.8 g/dL (13.1-16.8); LYMPHOCYTES ABSOLUTE AUTO 1.57 K/uL (0.50-3.50); LYMPHOCYTES PERCENT AUTO 21.2 % (10.0-50.0); MEAN CORPUSCULAR HEMOGLOBIN 30.5 pg (28.2-33.3); MEAN CORPUSCULAR HGB CONC 33.3 g/dL (31.7-36.0); MEAN CORPUSCULAR VOLUME 91.4 fL (84.0-98.0); MONOCYTES ABSOLUTE AUTO 0.75 K/uL (0.00-1.00); MONOCYTES PERCENT AUTO 10.1 % (2.0-14.0); NEUTROPHILS PERCENT AUTO 66.1 % (45.0-80.0); PLATELET COUNT,PLT 217 K/uL (150-350); RED BLOOD CELL COUNT 4.53 M/uL (4.33-5.41); RED CELL DISTRIBUTION WIDTH 12.8 % (11.2-14.1); WHITE BLOOD CELL COUNT,WBC 7.4 K/uL (4.0-10.2)
[2024-04-05 08:49] LABS: ALBUMIN 2.9 g/dL (3.4-5.0); ANION GAP 6.9 meq/L (7-15); BILIRUBIN TOTAL 0.6 mg/dL (0.2-1.0); CALCIUM 8.6 mg/dL (8.5-10.1); CARBON DIOXIDE,CO2 30.1 mmol/L (21.0-32.0); CREATININE 1.05 mg/dL (0.51-1.17); EST CRCL DRUG DOSING (CG) 75.75 mL/min; POTASSIUM,K 3.6 mmol/L (3.5-5.1); PROTEIN TOTAL,TP 6.6 g/dL (6.4-8.2)
[2024-04-05] MEDS ORDERED: Lactated Ringers 1,000 ML IV SCH (09:45)
[2024-04-05] MEDS: Lactated Ringers 1,000 ML IV SCH (09:50)
== END 2024-04-05 16:00 | disposition home or self-care (01) | DRG 351 ==
LOC: LL.ED 10:03 → LL.MS 13:04
PROVIDERS: ADMIT Physician Assistant; ATTEND Physician Assistant
DX: M62.82 Rhabdomyolysis (principal); K59.09 Other constipation; G20.B1 Parkinson's disease with dyskinesia, without mention of fluctuations; K21.9 Gastro-esophageal reflux disease without esophagitis; M19.90 Unspecified osteoarthritis, unspecified site; G89.29 Other chronic pain; E87.6 Hypokalemia; M54.9 Dorsalgia, unspecified; G47.9 Sleep disorder, unspecified; F41.9 Anxiety disorder, unspecified; F32.A Depression, unspecified; Z98.49 Cataract extraction status, unspecified eye; Z90.49 Acquired absence of other specified parts of digestive tract; Z98.52 Vasectomy status; Z79.899 Other long term (current) drug therapy; Z98.890 Other specified postprocedural states
CPT/HCPCS: 36415; 36600; 51702; 70450; 71045; 80047; 80048; 80053; 81001; 82550; 82565; 82803; 83605; 83735; 83880; 84100; 84132; 84484; 85025; 85027; 85610; 93005; 96360; 96361; 97162-GP; 99223; 99232; 99233; 99238; 99285-25; A9270-GY; J1650; J1940; J2060; J3480; J3490; J7030; J7120